=== PATIENT | male | born 1975 | race Two or more races ===

== ENCOUNTER 2016-10-25 17:22 | Emergency (ER) | payer OTHER ==
[~2016-10-25] VITALS: Ht 172.7 cm; Wt 77.1 kg
[2016-10-25] MEDS ORDERED: MULTIVITAMINS1 EAC2 ORAL (17:40)
[2016-10-25 17:56] VITALS: BP 129/74
[2016-10-25] MEDS ORDERED: Ketorolac 60mg Inj IM ONE (18:15)
--- NOTE | 2016-10-25 18:20 | Emergency Room Report ---
History of Present Illness General Chief Complaint: Lower Back Pain or Injury Source: Patient Present Illness HPI 41-year-old male presents emergency department complaining of low back pain with radiation down into the left leg x4 days. Patient states that 4 days ago he was at work he was bending over reaching into the fridge to grab something and he felt a sharp pain in his back. Patient states that he had mild low back pain the rest of the day which progressively has gotten worse. Patient states intermittently upon bending over or certain positions the pain will radiate down into the left leg. Pt rates pain as 10/10 in severity. Patient denies incontinence, fall or trauma. he denies previous history of injury. He denies history of neoplastic disease, recent spinal procedures, nausea, vomiting, fevers, chills. Denies neck pain or stiffness. Patient states he took Advil by mouth with mild relief 2 days ago. Denies CP, Palpitations, LOC, AMS, dizziness, Changes in Vision, Sensation, paresthesias, or a sudden severe headache. Allergies: Coded Allergies: No Known Allergies (Unverified , 10/25/16) Patient History Past Medical History: see triage record Past Surgical History: none Pertinent Family History: none Immunizations: UTD Reviewed Nursing Documentation: PMH: Agreed, PSxH: Agreed Nursing Documentation-PMH Past Medical History: No Stated History Review of Systems All Other Systems: negative except mentioned in HPI Physical Exam Vital Signs Date Time Temp Pulse Resp B/P Pulse Ox O2 Delivery O2 Flow Rate FiO2 10/25/16 17:34 98.1 57 16 126/76 99 Room Air Sp02 EP Interpretation: reviewed, normal General Appearance: no apparent distress, alert, GCS 15, non-toxic Head: normocephalic, atraumatic Eyes: bilateral eye PERRL, bilateral eye normal inspection ENT: hearing grossly normal, normal pharynx, no angioedema, normal voice Neck: full range of motion, no bony tend, supple/symm/no masses Respiratory: chest non-tender, lungs clear, normal breath sounds, speaking full sentences Cardiovascular #1: regular rate, rhythm, no edema Gastrointestinal: no rebound Rectal: deferred Musculoskeletal: back normal, gait/station normal, normal range of motion - FROM with pain upon flexion., no calf tenderness, tender - left sided paraspinal TTP, no midline spinal TTP, pt. is NVI to the lower extremities. Neurologic: alert, oriented x3, responsive, motor strength/tone normal, sensory intact, speech normal Psychiatric: judgement/insight normal, memory normal, mood/affect normal, no suicidal/homicidal ideation Skin: normal color, no rash, warm/dry, well hydrated, other - no erythema, bruising, or lesions noted. Lymphatic: no adenopathy Medical Decision Making PA Attestation Dr. Nevarez is my supervising Physician whom patient management has been discussed with. Diagnostic Impression: Primary Impression: Muscle strain ER Course Pt. presents to the ED c/o left sided lumbar back pain that radiates down into the left leg with certain positions. Ddx considered but are not limited to Fracture, dislocation, contusion, epidural abscess, Sprain/Strain/Spasm Vital signs: are WNL, pt. is afebrile H&PE are most consistent with muscle spasm, and left sided sciatica symptoms ORDERS: none required at this time. ED INTERVENTIONS: -60mg Toradol IM DISCHARGE: At this time pt. is stable for d/c to home. Will provide printed patient care instructions, and any necessary prescriptions. Care plan and follow up instructions have been discussed with the patient prior to discharge. Last Vital Signs Date Time Temp Pulse Resp B/P Pulse Ox O2 Delivery O2 Flow Rate FiO2 10/25/16 17:56 97.9 61 17 129/74 99 Room Air Disposition: HOME, SELF-CARE Condition: Stable Scripts Cyclobenzaprine Hcl* (FLEXERIL*) 10 Mg Tablet 10 MG ORAL THREE TIMES A DAY, #20 TAB Prov: Tere Friedman.Arielle 10/25/16 Ibuprofen* (MOTRIN*) 600 Mg Tablet 600 MG ORAL THREE TIMES A DAY, #30 TAB 0 Refills Prov: Tere Friedman P.Arielle 10/25/16 Departure Forms: Return to Work Return to Work Date: Oct 26, 2016 Work Restrictions: No Heavy Lifting, No Prolonged Standing, Desk Work Only Other Restrictions: light duty no heavy lifting x 1 week. Return to Full Activity: Nov 01, 2016 Patient Instructions: Lumbosacral Strain Additional Instructions: Take medications as directed. Follow up with PCP in 3-5 days Return sooner to ED if new symptoms occur, or current symptoms become worse. Do not drink alcohol, drive, or operate heavy machinery while taking Flexeril as this may cause drowsiness. Tere Friedman Oct 25, 2016 18:20
[2016-10-25] MEDS ORDERED: CYCLOBENZAPRINE10 MG ORAL (18:22)
[2016-10-25] MEDS ORDERED: IBUPROFEN600 MG ORAL (18:22)
[2016-10-25 18:32] VITALS: BP 129/74
== END 2016-10-25 18:34 | disposition home or self-care (01) ==
LOC: EMR 17:47
DX: S39.012A Strain of muscle, fascia and tendon of lower back, initial encounter (principal); X50.1XXA Overexertion from prolonged static or awkward postures, initial encounter; Y92.69 Other specified industrial and construction area as the place of occurrence of the external cause; Y99.0 Civilian activity done for income or pay
CPT/HCPCS: 96372; 99284